=== PATIENT | female | born 1930 | race Caucasian/White ===

== ENCOUNTER → 2019-07-05 | Outpatient (CLI) | payer MEDICARE, BC ==
--- NOTE | 2019-07-06 08:46 | XR ---
EXAMINATION TYPE: XR thoracic spine complete DATE OF EXAM: 07/05/2019 COMPARISON: None HISTORY: Back pain TECHNIQUE: Three-view thoracic spine FINDINGS: There is a scoliosis with the convexity to the right centered at T6. Spondylosis is present within the lower thoracic spine. Some degenerative loss of disc height is present in the upper thora cic spine. Vertebral body heights are preserved. Pedicles are intact. Some exaggeration of the thorac ic kyphosis in the upper thoracic spine as on the lateral view. IMPRESSION: 1. Scoliosis and kyphosis discussed above. 2. Spondylosis. 3. Mild degenerative disc changes upper thoracic spine.
== END | disposition home or self-care (01) ==
LOC: RAD 15:41
PROVIDERS: ATTEND Family Medicine
DX: M47.814 Spondylosis without myelopathy or radiculopathy, thoracic region (principal); M41.84 Other forms of scoliosis, thoracic region
CPT/HCPCS: 72072